=== PATIENT | female | born 1960 | race Two or more races ===

== ENCOUNTER 2021-04-16 15:42 | Emergency (ER) | payer MEDICAID, OTHER ==
[~2021-04-16] VITALS: Ht 167.6 cm; Wt 103.4 kg
[2021-04-16] MEDS ORDERED: MAG HYDROX/AL HYDROX/SIMETH 30 ML LIQUID UDC PO ONE (16:30)
[2021-04-16] MEDS ORDERED: LIDOCAINE VISCUS 2% 15 ML UDC MM ONE (16:30)
[2021-04-16] MEDS ORDERED: PANTOPRAZOLE SODIUM 40 MG VIAL IV ONE (16:30)
[2021-04-16] MEDS ORDERED: IV NORMAL SALINE 1000 ML BAG IV ONE (16:30)
[2021-04-16] MEDS ORDERED: LOSA25TA27 PO (16:33)
[2021-04-16] MEDS ORDERED: ATOR20TA PO (16:33)
[2021-04-16] MEDS ORDERED: LIDOCAINE VISCUS 2% 15 ML UDC ONE (17:04)
[2021-04-16] MEDS ORDERED: PANTOPRAZOLE SODIUM 40 MG VIAL ONE (17:04)
[2021-04-16] MEDS ORDERED: MAG HYDROX/AL HYDROX/SIMETH 30 ML LIQUID UDC ONE (17:04)
[2021-04-16 17:17] LABS: HEMATOCRIT 29.9 % (31.2-41.9); MEAN CORPUSCULAR HEMOGLOBIN 20.5 uug (24.7-32.8); MEAN CORPUSCULAR VOLUME 65.9 fL (75.5-95.3); PLATELET COUNT (AUTO) 376 K/uL (179-408)
[2021-04-16 17:24] LABS: *BILIRUBIN,URIN NEGATIVE (NEGATIVE); *CLARITY,URINE CLEAR (CLEAR); *COLOR,URINE YELLOW (YELLOW); *KETONES,URINE NEGATIVE (NEGATIVE); *UROBILINOGEN,URINE 0.2 E.U./dl (NORMAL); LEUKOCYTE ESTERASE ,URINE NEGATIVE (NEGATIVE); NITRITE, URINE NEGATIVE (NEGATIVE); PH,URINE 5.5 (5.0-8.0); UGLUCOSE NEGATIVE (NEGATIVE)
[2021-04-16 17:26] LABS: BILIRUBIN,TOTAL 0.9 mg/dL (0.2-1.0); CREATININE 0.8 mg/dL (0.6-1.3); POTASSIUM 3.7 mmol/L (3.5-5.1); TOTAL PROTEIN, SERUM 8.3 g/dL (6.4-8.2)
[2021-04-16 17:30] LABS: *BLOOD, URINE TRACE (NEGATIVE)
--- NOTE | 2021-04-16 17:45 | NUR ---
No relief from GI cocktail.
[2021-04-16] MEDS ORDERED: IV NORMAL SALINE 250 ML IV ONE (18:17)
[2021-04-16] MEDS ORDERED: IOHEXOL 300MG/ML 100 ML INFUS..BTL ONE (18:17)
[2021-04-16] MEDS ORDERED: SWABABLE VALVE TRANSFER SET EA MC ONE (18:17)
[2021-04-16] MEDS ORDERED: MORPHINE SULFATE 4 MG/1 ML DISP.SYRIN IV ONE (18:30)
--- NOTE | 2021-04-16 18:30 | NUR ---
Pt still c/o pain, only slight improvement, informed.
[2021-04-16] MEDS ORDERED: MORPHINE SULFATE 4 MG/1 ML DISP.SYRIN ONE (18:34)
--- NOTE | 2021-04-16 19:45 | NUR ---
Patient discharged to home in stable condition. Written and verbal after care instructions given. Patient verbalizes understanding of instructions. Stressed follow up or return to ER for worsening s/s.
--- NOTE | 2021-04-16 19:48 | NUR ---
IV removed. Catheter intact and site benign. Pressure and 4x4 gauze applied to site. No bleeding noted.
[2021-04-16 20:16] LABS: BACTERIA,URINE NONE SEEN /HPF (NONE SEEN); MUCUS,URINE FEW /LPF (0-FEW); SQUAMOUS EPITHELIAL CELL,UR FEW /HPF (NONE SEEN); WBC,URINE 0-3 /HPF (0-3)
[2021-04-16 20:22] VITALS: BP 145/89
== END 2021-04-16 20:23 | disposition home or self-care (01) ==
LOC: ER 15:44
DX: K25.9 Gastric ulcer, unspecified as acute or chronic, without hemorrhage or perforation (principal); Z83.3 Family history of diabetes mellitus; Z82.49 Family history of ischemic heart disease and other diseases of the circulatory system
CPT/HCPCS: 36415; 76705; 83690; 85025; A4663; C9113; J2270; J7030; J7050; Q9967

== ENCOUNTER 2021-12-05 17:38 | Emergency (ER) | payer OTHER ==
[~2021-12-05] VITALS: Ht 172.7 cm; Wt 90.7 kg
[~2021-12-05 17:38] MED LIST: ATOR20TA PO; LOSA25TA27 PO
[2021-12-05] MEDS ORDERED: METO-356 PO (17:56)
[2021-12-05] MEDS ORDERED: OMEP40CA21 PO (17:56)
[2021-12-05] MEDS ORDERED: LORA5SOL62 PO (17:56)
[2021-12-05] MEDS ORDERED: LEVO750T46 PO (17:56)
[2021-12-05] MEDS ORDERED: AMLO-212 PO (17:56)
[2021-12-05 18:37] LABS: *BILIRUBIN,URIN NEGATIVE (NEGATIVE); *BLOOD, URINE 1+ (NEGATIVE); *COLOR,URINE YELLOW (YELLOW); *KETONES,URINE NEGATIVE (NEGATIVE); *UROBILINOGEN,URINE 0.2 E.U./dl (NORMAL); LEUKOCYTE ESTERASE ,URINE 1+ (NEGATIVE); NITRITE, URINE NEGATIVE (NEGATIVE); PH,URINE 5.5 (5.0-8.0); UGLUCOSE NEGATIVE (NEGATIVE)
[2021-12-05 18:38] LABS: *CLARITY,URINE SLIGHTLY CLOUDY (CLEAR)
--- NOTE | 2021-12-05 19:43 | NUR ---
pt is asking for pain medication. Informed Dr. Hurst.
[2021-12-05] MEDS ORDERED: NITROFURANTOIN/NITROFURAN MAC 100 MG CAPSULE PO ONE ×2 (19:59→20:00)
[2021-12-05] MEDS ORDERED: PHENAZOPYRIDINE HCL 100 MG TABLET ONE (19:59)
[2021-12-05] MEDS ORDERED: ONDANSETRON 4 MG/2 ML VIAL IV ONE (20:00)
[2021-12-05] MEDS ORDERED: CEFTRIAXONE 1 G in IV DEXTROSE 5% 50 ML IV ONE (20:00)
[2021-12-05] MEDS ORDERED: CEFTRIAXONE 1 G VIAL IM ONE (20:00)
[2021-12-05] MEDS ORDERED: HYDROCODONE/APAP 10-325 MG TABLET PO ONE (20:00)
[2021-12-05] MEDS ORDERED: PHENAZOPYRIDINE HCL 100 MG TABLET PO ONE (20:00)
[2021-12-05] MEDS ORDERED: HYDROMORPHONE 1 MG/1 ML DISP.SYRIN IV ONE (20:00)
[2021-12-05] MEDS ORDERED: ONDANSETRON ODT 4 MG TAB.RAPDIS SL ONE (20:00)
[2021-12-05] MEDS ORDERED: CEFTRIAXONE /D5W 50ML IVPB **ER PYXIS IV ONE (20:03)
[2021-12-05] MEDS ORDERED: ONDANSETRON 4 MG/2 ML VIAL ONE (20:03)
[2021-12-05] MEDS ORDERED: HYDROMORPHONE 1 MG/1 ML DISP.SYRIN ONE (20:04)
--- NOTE | 2021-12-05 20:24 | NUR ---
pt received medications, and iv was placed by Daryl NAIR.
[2021-12-05 20:41] LABS: BACTERIA,URINE RARE /HPF (NONE SEEN)
[2021-12-05 20:42] LABS: SQUAMOUS EPITHELIAL CELL,UR FEW /HPF (NONE SEEN)
[2021-12-05] MEDS ORDERED: ONDA4TAB5 PO (21:00)
[2021-12-05] MEDS ORDERED: HYDR-4209 PO (21:00)
[2021-12-05] MEDS ORDERED: NITR-84 PO (21:00)
[2021-12-05] MEDS ORDERED: CEPH500T PO (21:00)
[2021-12-05] MEDS ORDERED: PHEN-704 PO (21:00)
--- NOTE | 2021-12-05 21:12 | NUR ---
Patient discharged to home in stable condition. Written and verbal after care instructions given. Patient verbalizes understanding of instructions. Stressed follow up or return to ER for worsening s/s. Patient out of ER with steady gait, no acute signs of distress, VSS, all belongings taken, IV site discontinued, provided with copies of lab results, instructed not to drive, to be driven home by daughter via private vehicle.
[2021-12-05 21:14] VITALS: BP 148/76
== END 2021-12-05 21:14 | disposition home or self-care (01) ==
LOC: ER 17:40
DX: N12 Tubulo-interstitial nephritis, not specified as acute or chronic (principal); N39.0 Urinary tract infection, site not specified; Z87.440 Personal history of urinary (tract) infections; K21.9 Gastro-esophageal reflux disease without esophagitis
CPT/HCPCS: 81001; 87086; 96365; 96375; 99284; J0696; J1170; J2405; A4663